=== PATIENT | female | born 1990 | race Caucasian/White ===

== ENCOUNTER 2020-01-27 08:25 | Emergency (ER) | payer MEDICAID ==
[2020-01-27] MEDS ORDERED: LORazepam 2 MG/ML SDV IVPUSH ONE (08:39)
[2020-01-27] MEDS ORDERED: Clindamycin Phosphate 600 MG in Sodium Chloride 0.9% 100 ML IV ONE (08:41)
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
[2020-01-27] MEDS ORDERED: Dextrose 5%-0.9% NaCl 1,000 ML IV SCH (08:45)
== END 2020-01-27 13:25 | disposition home or self-care (01) ==
LOC: JD.ED 08:25
DX: S61.512A Laceration without foreign body of left wrist, initial encounter (principal); S51.812A Laceration without foreign body of left forearm, initial encounter; F10.129 Alcohol abuse with intoxication, unspecified; Y90.0 Blood alcohol level of less than 20 mg/100 ml; F15.10 Other stimulant abuse, uncomplicated; Z88.5 Allergy status to narcotic agent; Z88.0 Allergy status to penicillin; W26.0XXA Contact with knife, initial encounter
CPT/HCPCS: 36415; 80053; 80307; 83735; 84703; 85025; 86140; 93005; 96365; 96375; 99284; J2060; J3490; J7042; J7050; 93010

== ENCOUNTER 2020-10-12 13:03 | Emergency (ER) | payer MEDICAID ==
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
--- NOTE | 2020-10-12 15:33 | CR ---
Right elbow: 4 views of the right elbow were obtained. Comparison: No prior elbow study is available. Findings: Soft tissues: Soft tissue swelling is seen. No discrete joint effusion is seen. Osseous: No discrete fracture, dislocation or other bony abnormality is seen. Impression: 1. Soft tissue swelling. 2. No acute bony abnormality is appreciated. Diagnostic code #2
[2020-10-12] MEDS ORDERED: Acetaminophen/HYDROcodone 325-5 MG Tab PO ONE (17:03)
[2020-10-12] MEDS ORDERED: Clindamycin HCl 150 MG Cap PO ONE (17:14)
== END 2020-10-12 18:26 | disposition home or self-care (01) ==
LOC: JD.ED 13:03
DX: L03.113 Cellulitis of right upper limb (principal); Z88.0 Allergy status to penicillin; Z88.5 Allergy status to narcotic agent
CPT/HCPCS: 36415; 73080; 80053; 80306; 81001; 84484; 85007; 85027; 85652; 86140; 87040; 87086; 87641; 93005; 99285; A9270; 99284